=== PATIENT | female | born 1985 | race Two or more races ===

== ENCOUNTER 2024-04-20 10:26 | Emergency (ER) | payer OTHER, SELFPAY ==
[2024-04-20 10:39] VITALS: BP 109/71; PULSE 66; RESP 16; TEMP 36.7; O2SAT 100; BMI 23.8
--- NOTE | 2024-04-20 13:43 | ED_ITS ---
HPI - Eye Problem General Chief complaint: Eye Problems Stated complaint: Blurry vision Time Seen by Provider: 04/20/24 13:42 Source: patient Mode of arrival: ambulatory Limitations: no limitations History of Present Illness HPI Narrative: patient presents to the emergency department for evaluation. She reports that she was driving which she developed sudden onset of blurred vision, she reports a [facility] length change to her vision, so described as like waves of water . Noticed in her central vision but also when looking off to her periphery. she was able to follow signs on the highway to get her to this hospital was able to ambulate to emergency department. She endorsed a mild pressure behind the bilateral eyes that has since resolved. Also endorsing a mild photophobia. She does admit that while waiting in the waiting room her symptoms have slightly improved but have not completely resolved. She denies headache, dizziness, eye pain, recent URI symptoms, history of migraines, pain, chest pain, shortness of breath, numbness or tingling of her extremities. She feeling. She does report a history of Sjogren's disease, Graves disease and subsequent thyroid storm with thyroidectomy, with baseline unilateral exophthalmos. She does state that she tried to apply to her eyes in the event that they were just dry but this did not improve her symptoms she does report that over past month she has brief intermittent episodes of blurred vision usually lasting 30 seconds-1 minute, she has had levothyroxine dosage increased over the past above the as well from 66 mcg to 88 mcg. Related Data Allergies Allergy/AdvReac Type Severity Reaction Status Date / Time amoxicillin [From Augmentin] Allergy Shakiness Verified 04/20/24 10:40 clavulanic acid Allergy Shakiness Verified 04/20/24 10:40 [From Augmentin] Review of Systems Review of Systems: Yes all other systems are reviewed and are negative PMFSH Past Medical History Attestation statement: The following information was validated with the patient. Source: old records reviewed Social History Social History Advance Directives: Yes Advance Directives Information Provided: Yes Advance Directives on File: No Do you have a plan to hurt others: No Plan Physical Exam Vital Signs: Vital Signs: Last Vital Signs Temp 98.0 F 04/20/24 10:39 Pulse 66 04/20/24 10:39 Resp 16 04/20/24 10:39 BP 109/71 04/20/24 10:39 Pulse Ox 100 04/20/24 10:39 O2 Del Method Room Air 04/20/24 10:39 BMI result Body Mass Index 23.8 Appearance: Alert.?Oriented to person, place and time. No acute distress.?Normal affect. Eyes: Pupils equal, round and reactive to light.? EOMI. No nystagmus. Intra- ocular pressure on the right of 18, left 15, unilateral exophthalmos with left more prominent than right. ENT: Pharynx normal.?? Neck: Normal inspection.? Neck supple.?? CVS: Heart sounds normal. Normal heart rate and rhythm.? Pulses normal.?? Respiratory: No respiratory distress.? Lung sounds clear to auscultation bilaterally?? Abdomen: Soft and non-tender. Normoactive bowel sounds. ?? Skin: Skin warm and dry.? Normal skin color.? Extremities: No lower extremity edema.? Neuro: No focal neurological deficit observed, CN II-XII intact, normal sensory observed, normal coordination observed. Level of consciousness: Appropriate for age. Motor strength: right upper extremity 5 /5, left upper extremity 5 /5, right lower extremity 5 /5, left lower extremity 5 /5.? Speech: Normal, Gait: Normal, Aibuzm-km-[id number] test: Normal, Umdt-[id number]-vgfv test: Normal. Medical Decision Making Medical Decision Making MDM Narrative: Patient is a old female past medical history of Sjogren's disease, Graves disease, subsequent thyroid storm with thyroidectomy presents emergency department for evaluation of sudden onset blurred vision as per HPI. Overall she nontoxic, afebrile. Atraumatic bilateral visual impairment as per HPI. Pressures are within normal range. 20/30 vision bilaterally. No focal neurological deficits. no indication for emergent CT of the head at this time. I discussed this case with ED attending, Avi also met with patient at bedside and evaluated he agrees with plan of care, suspect that this is likely a migraine, and is stable for discharge home. Differential Diagnosis Differential Diagnoses: The differential diagnosis associated with the presentation includes ( Elevated intra-ocular pressures, complex migraine aura, hypoperfusion, dry eyes, suspect less likely TIA/stroke) Admission/Observation Consideration of admission/observation: Escalation of care including admission/observation considered Consult Healthcare Provider Management of the patient was discussed with: Fulfillment Coordinator ( see narrative above) Tests considered The following testing was considered but not selected: See narrative above Discharge Plan Discharge Clinical Impression: Blurred vision Patient Disposition: Home, Self-Care Instructions: Blurred Vision (ED) Additional Instructions: as discussed, the blurred vision you are experiencing a migraine. Please follow-up closely With your primary care provider/steeping press tender. Return back to emergency department any new or worsening symptoms or concerns such as headache, dizziness, severe worsening vision changes, pain to the eyes, confusion, numbness or tingling of the extremities, inability to walk normally, confusion. Referrals: Carlos Harris MD [Primary Care Provider] - Print Language: Malay
[2024-04-20 14:00] VITALS: BP 113/62; PULSE 56; TEMP 36.9; O2SAT 100
[2024-04-20 14:44] VITALS: BP 113/62; PULSE 56; RESP 17; TEMP 36.9; O2SAT 100
== END 2024-04-20 14:46 | disposition home or self-care (01) ==
PROVIDERS: Emergency Provider Emergency Medicine; PCP Internal Medicine
DX: H53.8 Other visual disturbances (principal); M35.00 Sjogren syndrome, unspecified; E05.00 Thyrotoxicosis with diffuse goiter without thyrotoxic crisis or storm; Z79.899 Other long term (current) drug therapy
CPT/HCPCS: 99283